=== PATIENT | male | born 1995 | race Caucasian/White ===

== ENCOUNTER 2023-08-07 17:08 | Emergency (ER) | payer SELFPAY ==
--- NOTE | ~2023-08-07 | XR_ITS ---
EXAMINATION: XR chest 2V Exam Date/Time: 08/07/2023 17:35 CDT HISTORY: MIDLINE CHEST PAIN, HIGH BLOOD PRESSURE Comparison: None. RESULT: Lines, tubes, and devices: None. Lungs and pleura: Clear. Cardiomediastinal silhouette: Normal. Other: No acute osseous or upper abdominal finding. IMPRESSION: No acute cardiopulmonary process. Reviewed, dictated and finalized at location K.
--- NOTE | 2023-08-07 17:09 | ECG_ITS ---
Measurements Intervals [place] Rate: 63 P: 25 [place]: 131 QRS: 19 QRSD: 96 T: 14 QT: 393 QTc: 403 Interpretive Statements SINUS RHYTHM WITH MARKED SINUS ARRHYTHMIA BASELINE ARTIFACT- III, AVR, AVL, AVF NORMAL ECG NO PREVIOUS ECG AVAILABLE FOR COMPARISON Electronically Signed On 08-07-2023 19:32:27 CDT by Derek Cook D.O.
[2023-08-07 17:13] VITALS: BP 173/108; PULSE 68; RESP 12; TEMP 36.6; O2SAT 100
[2023-08-07 17:21] VITALS: PULSE 62; O2SAT 100
[2023-08-07 17:23] LABS: Basophils Percent Auto 0.4 % (0.2-1.2); Eosinophils Percent Auto 0.5 % (0-4.4); Hematocrit 46.7 % (42.0-52.0); Hemoglobin 16.1 g/dL (14.0-18.0); Immature Granulocyte Absolute 0.02 K/mm3 (0.00-0.031); Immature Granulocyte Percent A 0.3 % (0-0.5); Lymphocytes Absolute Auto 1.89 K/mm3 (0.9-3.2); Lymphocytes Percent Auto 24.8 % (18.3-44.2); Mean Corpuscular HGB Conc 34.5 g/dl (32-36); Mean Corpuscular Hemoglobin 31.4 pg (26-34); Mean Corpuscular Volume 91.2 fl (80-100); Mean Platelet Volume 9.3 fl (7.4-10.4); Monocytes Absolute Auto 0.7 K/mm3 (0.1-0.6); Monocytes Percent Auto 9.3 % (2.6-8.5); Neutrophils Absolute Auto 4.9 K/mm3 (1.3-6.7); Neutrophils Percent Auto 64.7 % (45.5-73.1); Platelet Count Result 171 k/mm3 (150-375); Red Blood Count 5.12 M/mm3 (4.6-6.20); White Blood Count 7.6 K/mm3 (4.5-10.0)
[2023-08-07 17:32] LABS: INR 0.9; Prothrombin Time 12.1 Seconds (11.1-14.7)
[2023-08-07 17:33] LABS: Partial Thromboplastin Time 25.7 Seconds (22.3-36.8)
--- NOTE | 2023-08-07 17:34 | ED.CHESTPAIN ---
HPI - Chest Pain General Chief Complaint: Chest Pain Stated Complaint: Chest Pain Time Seen by Provider: 08/07/23 17:11 Source: patient Mode of arrival: ambulatory Limitations: no limitations History of Present Illness HPI narrative: Patient is a 28-year-old male who presents the ED with complaints of left-sided chest pain. Patient reports having intermittent pain over the last several days. Pain present in left upper chest wall, extending into left axillary region, slightly to his left-sided neck. Reports pain occurs at random, worse with movement of left arm, worse with lifting heavy objects. States pain is brief, occurs for a second or two at a time. Has had improvement with ibuprofen. States he feels very anxious when the pain occurs which has caused his breathing to feel shallow, but overall denies shortness of breath. Denies dyspnea with exertion. Denies lower extremity pain or swelling. Denies abdominal pain, nausea, vomiting. Patient has family history of heart disease in his father at age 55. Denies personal history of heart disease. Denies HTN, HLD. Does drink ETOH frequently. Review of Systems Review of Systems: CONSTITUTIONAL: Denies fever, chills, or sweats. CARDIOVASCULAR: See HPI. RESPIRATORY: See HPI. GASTROINTESTINAL: Denies abdominal pain, nausea, vomiting. MUSCULOSKELETAL: See HPI. All systems reviewed & are unremarkable except as noted in HPI and below PMFSH Social History Social History Alcohol intake: current Exam Narrative: GENERAL: Mildly unkempt, obese with BMI of 30.8, non-toxic, in no acute distress. HEAD: Normocephalic, atraumatic. RESPIRATORY: Airway patent, respirations nonlabored. Clear to auscultation bilaterally, no rales, rhonchi, wheezing. CARDIOVASCULAR: Regular rate and rhythm. Radial pulses easily palpable ABDOMINAL: Soft, no tenderness throughout abdomen, nondistended. Normoactive BS. MUSCULOSKELETAL: Moves all extremities. No gross deformities. No lower extremity swelling. No calf tenderness. Focal tenderness to palpation over left upper anterior chest wall, extending into axillary region/pectoral muscle, reproducing pain. SKIN: Warm, dry, normal color. NEURO: A&O X3. Speech clear. PSYCHIATRIC: Appropriate mood and affect. Normal interaction. Course Vital Signs Vital signs: Vital Signs Temperature 97.8 F 08/07/23 17:13 Pulse Rate 68 08/07/23 17:13 Respiratory Rate 12 08/07/23 17:13 Blood Pressure 173/108 H 08/07/23 17:13 Pulse Oximetry 100 08/07/23 17:13 Oxygen Delivery Room Air 08/07/23 17:13 Temperature 97.8 F 08/07/23 17:13 Pulse Rate 62 08/07/23 17:21 Respiratory Rate 12 08/07/23 17:13 Blood Pressure 173/108 H 08/07/23 17:13 Pulse Oximetry 100 08/07/23 17:21 Oxygen Delivery Room Air 08/07/23 17:21 MDM - Chest Pain MDM Narrative Medical decision making narrative: Patient presented to ED with several day history of intermittent left-sided chest pain, worse with movement of LUE/lifting heavy objects. VSS upon arrival. Patient mildly hypertensive, though very anxious. Pain seems most likely musculoskeletal. Patient with HEART score =1, based on BMI and FHx. No other significant risk factors for ACS. EKG is without ischemic changes. Baseline troponin is undetectable. Patient has been having ongoing intermittent pain over the last several days. Would expect troponin elevation if cardiac in nature. Undetectable troponin at this time is very reassuring against ACS. No indication for 3 hour troponin. No current CP. Chest x-ray is clear. No evidence of pneumonia or other cardiopulmonary abnormality. Patient is PERC negative. Denies shortness of breath, no tachycardia or hypoxia. No evidence of DVT on exam. Low suspicion for PE. Remainder of basic laboratory studies are unremarkable. Stable electrolytes, stable kidney function. Normal LFTs and lipase.
[2023-08-07 17:36] LABS: Alanine Aminotransferase 40 U/L (6-50); Alkaline Phosphatase 79 U/L (38-126); Anion Gap 10 mmol/L (8-16); Aspartate Amino Transferase 41 U/L (17-59); Bilirubin,Total 0.9 mg/dL (0.2-1.3); Blood Urea Nitrogen 14 mg/dL (9-20); Calcium 9.9 mg/dL (8.4-10.2); Carbon Dioxide 24 mmol/L (22-30); Chloride 105 mmol/L (98-107); Estimated CRCL calculation 143 ml/min; Estimated Glomerular Filt Rate > 60; Glucose 104 mg/dL (65-110); Lipase 173 U/L (23-300); Potassium 3.8 mmol/L (3.4-5.0); Sodium 139 mmol/L (137-145)
[2023-08-07 17:48] LABS: Troponin I < 0.012 ng/mL (0.000-0.034)
[2023-08-07] MEDS: ACETAMINOPHEN 500 MG TABLET 1000 MG PO (17:52)
== END 2023-08-07 18:26 | disposition home or self-care (01) ==
PROVIDERS: Emergency Medicine; Emergency Provider Physician Assistant
DX: R07.89 Other chest pain (principal)
CPT/HCPCS: 36415; 71046; 80053; 83690; 84484; 85025; 85610; 85730; 93005; 99284; A9270